=== PATIENT | female | born 1985 | race Caucasian/White ===

== ENCOUNTER 2019-12-09 04:19 | Emergency (ER) | payer OTHER ==
[~2019-12-09] VITALS: Ht 162.6 cm; Wt 72.0 kg
[2019-12-09 05:00] VITALS: BP 136/80
== END 2019-12-09 05:24 | disposition home or self-care (01) ==
LOC: EDBD 04:19 → M ED 04:19
DX: F41.0 Panic disorder [episodic paroxysmal anxiety] (principal); R55 Syncope and collapse; E03.9 Hypothyroidism, unspecified; F17.200 Nicotine dependence, unspecified, uncomplicated